=== PATIENT | female | born 1985 | race African-American/Black ===

== ENCOUNTER 2025-02-07 09:01 | Emergency (ER) | payer OTHER ==
[~2025-02-07] VITALS: Ht 165.1 cm; Wt 55.3 kg
[2025-02-07] MEDS ORDERED: NAPR-885 PO (10:19)
[2025-02-07] MEDS: NS (Normal Saline) 0.9% 1,000 ML IV ONE (11:08)
[2025-02-07] MEDS: diphenhydrAMINE 50 MG/ML VIAL IV STA (11:10)
[2025-02-07] MEDS: KETOROLAC 30 MG/ML 1 ML VIAL IV ONE (11:10)
[2025-02-07] MEDS ORDERED: UBRO100T PO (13:52)
[2025-02-07 14:00] VITALS: BP 99/53; TEMP 98.6; O2SAT 100
== END 2025-02-07 14:12 | disposition home or self-care (01) ==
LOC: M ED 09:01
DX: R51.9 Headache, unspecified (principal); J34.2 Deviated nasal septum; Z79.1 Long term (current) use of non-steroidal anti-inflammatories (NSAID); Z79.899 Other long term (current) drug therapy
CPT/HCPCS: 70450; 96361; 96374; 96375; 99284; J1100; J1200; J1885; J2765